=== PATIENT | female | born 1960 | race Caucasian/White ===

== ENCOUNTER → 2020-04-17 | Outpatient (CLI) | payer BC ==
[~2020-04-17] MED LIST: ASPI81EC PO; CLON.5 PO; CYCL10 PO; ESCI20; FISH1000 PO; HYDACE5 PO; HYDR1TAB94 PO; Imitrex PO; Inderal 20 mg T20 MG GT; LORA1; LORA1 PO; MULVITMIND PO; PHENA200 PO; SERT25 PO; SULTRIDS PO; SUMA25 PO; TRAM50 PO; ZOLM5; [UNRECOGNIZED DRUG - CODE]
== END ==
LOC: LAB 11:58 → LAB SHORT 11:58
DX: R30.0 Dysuria (principal)
CPT/HCPCS: 87086

== ENCOUNTER 2021-01-13 08:50 | Day surgery (SDC) | payer BC ==
[~2021-01-13] VITALS: Ht 157.5 cm; Wt 85.5 kg
[~2021-01-13 08:50] MED LIST changes: +ACET325; +GLUCOSAMINE-CH1 EAC7 PO; -Imitrex PO
--- NOTE | 2021-01-13 09:16 | NUR ---
01/13/21 0916 Sandy Zhu TETRACAINE AND PLEDGET APPLIED TO LEFT EYE
== END 2021-01-13 10:20 | disposition home or self-care (01) ==
LOC: ORSCSDS 08:50
PROVIDERS: Ophthalmology
PROC: 08RK3JZ Replacement of Left Lens with Synthetic Substitute, Percutaneous Approach (ICD-10-PCS; principal; 2021-01-13 10:00)
DX: H25.12 Age-related nuclear cataract, left eye (principal); E66.9 Obesity, unspecified; Z68.34 Body mass index [BMI] 34.0-34.9, adult; J45.909 Unspecified asthma, uncomplicated; Z79.899 Other long term (current) drug therapy
CPT/HCPCS: J2001; J2250; J3010; J3301; J7040; V2632

== ENCOUNTER 2021-01-19 07:59 | Day surgery (SDC) | payer BC ==
[~2021-01-19] VITALS: Ht 157.5 cm; Wt 86.1 kg
--- NOTE | 2021-01-19 08:27 | NUR ---
01/19/21 0827 Scarlet Amezcua TETRACAINE AND PLEDGET PLACED IN RIGHT EYE BY [facility] [[email or web address]
== END 2021-01-19 10:01 | disposition home or self-care (01) ==
LOC: ORSCSDS 07:59
PROVIDERS: Ophthalmology
PROC: 08RJ3JZ Replacement of Right Lens with Synthetic Substitute, Percutaneous Approach (ICD-10-PCS; principal; 2021-01-19 09:15)
DX: H25.11 Age-related nuclear cataract, right eye (principal); E66.9 Obesity, unspecified; Z68.34 Body mass index [BMI] 34.0-34.9, adult; Z79.899 Other long term (current) drug therapy
CPT/HCPCS: J2001; J2250; J3010; J3301; J7040; V2632